=== PATIENT | male | born 1965 | race Caucasian/White ===

== ENCOUNTER 2021-02-03 17:30 | Inpatient (IN) | payer MEDICARE, MEDICAID, SELFPAY ==
[2021-02-03 17:38] VITALS: BMI 18.3
[2021-02-03 17:39] VITALS: BP 163/96; PULSE 102; RESP 20; TEMP 36.8; O2SAT 100
--- NOTE | 2021-02-03 19:05 | PC.NURSE ---
covid swab sent to lab
[2021-02-03 19:13] LABS: Coronavirus 19, PCR Not Detected (NotDetected); Influenza A, PCR Not Detected (NotDetected); Influenza B, PCR Not Detected (NotDetected)
[2021-02-03 20:00] VITALS: BP 151/88; PULSE 95; RESP 16; TEMP 37.4; O2SAT 96
--- NOTE | 2021-02-03 20:14 | HMH.HP ---
*Admission Date: 02/03/21 *Chief complaint: sob *History of present illness: this patient was accepted from [facility] ed with sob and found to have cap- pt was transferred to [facility] for eval and treatment -pt has hx of liver disease and cirrhosis and copd and tob use - pt has been ill for a few days with fever and fatigue - pt was noted to have cap and transferred to [facility] History I have reviewed the patient's past medical history: Yes Medical History: Reports:: Hyperlipidemia, Hypertension Denies:: Diabetes Mellitus Type 1, Diabetes Mellitus Type 2 *Have you ever received a pneumonia vaccine?: Yes *Have you received a flu vaccine this season?: No Other Medical History: Reports: Arthritis, Liver Disease Other Surgeries: Yes: Appendectomy - *Social History Smoking Status: Current every day smoker # Packs/Day (cigarettes): 1 Alcohol Intake: current Alcohol Intake Frequency:: 3 or more drinks per day *Occupational Status:: employed *Travel in the last 8 weeks: None Family Hx:: No significant family history Review of Systems - Review of Systems Review of systems:: pertinent systems reviewed and negative unless documented below - Constitutional Reports fever(s), Reports weakness - Eyes Denies change in vision - ENT Denies sore throat - *Cardiovascular Denies chest pain - *Respiratory Reports cough, Reports shortness of breath, Reports wheezing, Denies coughing up blood - *Gastrointestinal Denies abdominal pain - *Genitourinary Denies blood in urine - *Musculoskeletal Denies joint swelling - Integumentary/Breasts Denies rash - *Neurologic Denies localized weakness, Denies headache(s), Denies seizure-like activity - Psychiatric Denies behavioral changes Meds Home Medications Medication Instructions Recorded Confirmed Type Aspirin [Adult Aspirin Regimen] 81 mg PO DAILY 02/03/21 02/03/21 History Atorvastatin Calcium [Lipitor 40mg 40 mg PO HS 02/03/21 02/03/21 History Tab] Clopidogrel Bisulfate [Clopidogrel 75 mg PO DAILY 02/03/21 02/03/21 History 75mg Tab] Gabapentin 800 mg PO TID 02/03/21 02/04/21 History Megestrol Acetate 5 ml PO BID 02/03/21 02/04/21 History Montelukast Sodium 10 mg PO DAILY 02/03/21 02/03/21 History Omeprazole [Omeprazole 20mg Tab] 20 mg PO DAILY 02/03/21 02/03/21 History Valsartan [Valsartan 160mg 160 mg PO DAILY 02/03/21 02/03/21 History Tablets] carvediloL [Carvedilol 12.5mg Tab] 12.5 mg PO BID 02/03/21 02/04/21 History cloNIDine HCL [cloNIDine 0.1mg 0.1 mg PO BID 02/03/21 02/03/21 History Tablet] Albuterol Sulfate [Proventil-HFA 2 puffs INHALATION Q4HP PRN 02/04/21 02/04/21 History 90mcg/puff Inh] Budesonide/Formoterol Fumarate 1 puff INHALATION BID 02/04/21 02/04/21 History [Symbicort 160-4.5 Mcg Inhaler] Simethicone [Gas Relief] 80 mg PO QIDP PRN 02/04/21 02/04/21 History Allergies Allergy/AdvReac Type Severity Reaction Status Date / Time bee venom protein (honey bee) Allergy Verified 02/03/21 17:52 Exam Vital signs and Labs for Last 24 Hours: Temp Pulse Resp BP Pulse Ox 98.3 F 102 H 20 163/96 H 100 02/03/21 17:39 02/03/21 17:39 02/03/21 17:39 02/03/21 17:39 02/03/21 17:39 Laboratory Results - last 24 hr 02/03/21 18:55: SARS-CoV-2 (PCR) Not detected, Influenza A Untype (PCR) Not detected, Influenza Type B (PCR) Not detected I & O for Last 24 hours: Intake & Output 02/01/21 02/02/21 02/03/21 02/04/21 11:59 11:59 11:59 11:59 Output Total 250 / 250 Balance -250 / -250 Weight 128 lb - Constitutional no acute distress, thin - *Routine HEENT Exam Head: Present: normocephalic Eye: Present: EOMI, PERRL ENT: Present: mucous membranes dry - *Routine Neck Exam Absent: JVD - *Routine Respiratory Exam Present: decreased breath sounds, rhonchi, wheezes - *Routine Cardiovascular Exam Present: RRR, murmur, S4 - *Routine Abdominal Exam Present: soft - *Routine Re
--- NOTE | 2021-02-03 20:19 | XR_ITS ---
PROCEDURE INFORMATION: Exam: XR Chest Exam date and time: 02/03/2021 8:19 PM Age: 56 years old Clinical indication: Cough and shortness of breath; Patient HX: Cough SOB TECHNIQUE: Imaging protocol: XR of the chest. Views: 1 view. COMPARISON: No relevant prior studies available. FINDINGS: Lungs: Patchy interstitial infiltrates identified bilaterally. Many of the infiltrates have a peripheral distribution. Area of greatest involvement is at the right lung base. No evidence of pulmonary vascular congestion. Pleural spaces: Unremarkable. No pleural effusion. No pneumothorax. Heart/Mediastinum: Median sternotomy and cardiac surgery have been performed. The heart is normal size. The superior mediastinum is not widened. Bones/joints: Unremarkable. IMPRESSION: Patchy interstitial infiltrates within both lung aleman. Many of the infiltrates have a peripheral distribution. The possibility of atypical interstitial pneumonitis, including pneumonitis caused by Covid 19 is considered.
[2021-02-03 21:19] VITALS: PULSE 100
[2021-02-04] VITALS (12 sets, daily range): BP systolic 128–159; BP diastolic 70–89; PULSE 74–94; RESP 16–30; TEMP 36.6–36.9; O2SAT 89–98; BMI 18.3
[2021-02-04 00:15] LABS: Troponin I 0.02 ng/ml (0.00-0.034)
[2021-02-04 02:49] LABS: Troponin I 0.03 ng/ml (0.00-0.034)
--- NOTE | 2021-02-04 03:06 | HMH.PHAVTE ---
[facility] Pharmacy VTE Monitoring - Patient Demographics Admission date: 02/04/21 Report Date: 02/04/21 Time: 03:06 Allergies/Adverse Reactions: Patient Allergies bee venom protein (honey bee) Allergy (Verified 02/03/21 17:52) Height: 1.78 m Weight: 58.06 kg - VTE Risk Was VTE Risk Assessment Performed: Yes VTE Score: 7 VTE Risk Level: Moderate Risk Clinical Trial Participant: No - Prophylaxis VTE Prophylaxis Ordered?: Yes Types of VTE Prophylaxis: TEDS Knee High
[2021-02-04 07:37] LABS: Basophils % 0.1 % (0.1-2.0); Eosinophils % 0.4 % (0.1-12.0); Hematocrit 27.8 % (42.0-52.0); Hemoglobin 9.4 g/dL (14.1-18.0); Lymphocytes # 0.4 K/mm3 (0.7-4.5); Lymphocytes % 4.2 % (10-50); Mean Corpuscular HGB Conc 33.8 g/dL (31.8-35.4); Mean Corpuscular Volume 106.7 fl (80-94); Mean Platelet Volume 8.6 fl (7.4-10.4); Monocytes # 0.2 K/mm3 (0.1-1.0); Monocytes % 1.8 % (1.7-9.3); Neutrophils # 7.9 K/mm3 (1.8-7.8); Neutrophils % 93.6 % (37.0-80.0); Platelet Count 146 K/mm3 (142-424); Red Blood Count 2.61 M/mm3 (4.60-6.20); Red Cell Distribution Width 15.7 % (11.5-17.5); White Blood Count 8.5 K/mm3 (4.8-10.8)
[2021-02-04 07:48] LABS: MANUAL DIFFERENTIAL MANUAL DIFFERENTIAL (MANUAL DIFF)
[2021-02-04 07:59] LABS: Chloride 97 mmol/L (98-107); Sodium 126 mmol/L (136-145)
[2021-02-04 08:02] LABS: Alanine Aminotransferase 13 U/L (12-78); Albumin Level 2.5 g/dl (3.5-5.0); Albumin/Globulin Ratio 0.9 (1.1-1.8); Alkaline Phosphatase 52 U/L (38-126); Anion Gap 14.8 mEq/L (5-15); Aspartate Amino Transferase 43 U/L (17-59); Bilirubin,Total 1.5 mg/dl (0.2-1.3); Blood Urea Nitrogen 4 mg/dl (9-20); Carbon Dioxide 17 mmol/L (22.0-30.0); Creatinine Clearance Estimated 169 mL/min (50-200); Estimated Glomerular Filt Rate 223 ml/min (>60); GFR (African American) 269 ML/MIN (>60); Globulin 2.9 g/dL (1.3-3.2); Phosphorous 3.8 mg/dl (2.5-4.5); Total Protein,Serum 5.4 g/dl (6.3-8.2)
[2021-02-04 08:03] LABS: Calcium 7.6 mg/dl (8.4-10.2); Glucose 96 mg/dl (74-100)
[2021-02-04 08:20] LABS: Potassium 2.8 mmoL/L (3.5-5.1)
[2021-02-04 08:21] LABS: Magnesium 0.5 mg/dl (1.6-2.3)
[2021-02-04 09:04] LABS: Anisocytosis 1+; Hypochromasia 1+; Lymphocytes % 5 % (10-50); Macrocytosis 1+; Monocytes % 1 % (2-9); Neutrophils % 94 % (42-76); Platelet Estimate Normal; Total Cells Counted 100
--- NOTE | 2021-02-04 10:27 | HMH.PHAINT ---
Verified home medications with [facility] pharmacy
--- NOTE | 2021-02-04 11:02 | P.PN_ITS ---
Internal Medicine - PN: Subj *Date: 02/05/21 *Time: 09:35 Interval history: doing better this am - feels better - labs reviewed Exam Vital signs and Labs for Last 24 Hours: Temp Pulse Resp BP Pulse Ox 98.4 F 90 18 142/84 H 94 L 02/04/21 07:46 02/04/21 07:46 02/04/21 07:46 02/04/21 07:46 02/04/21 07:46 Laboratory Results - last 24 hr 02/03/21 18:55: SARS-CoV-2 (PCR) Not detected, Influenza A Untype (PCR) Not detected, Influenza Type B (PCR) Not detected 02/03/21 23:26: Troponin I 0.02 02/04/21 02:15: Troponin I 0.03 02/04/21 07:15: WBC 8.5, RBC 2.61 L, Hgb 9.4 L, Hct 27.8 L, MCV 106.7 H, MCH 36.0 H, MCHC 33.8, RDW 15.7, Plt Count 146, MPV 8.6, Neut % (Auto) 93.6 H, Lymph % (Auto) 4.2 L, [place] % (Auto) 1.8, Eos % (Auto) 0.4, Baso % (Auto) 0.1, Neut # (Auto) 7.9 H, Lymph # (Auto) 0.4 L, [place] # (Auto) 0.2, Eos # (Auto) 0.0, Baso # (Auto) 0.0, Total Counted 100, Neutrophils % (Manual) 94 H, Lymphocytes % (Manual) 5 L, Monocytes % (Manual) 1 L, Platelet Estimate Normal, Hypochromasia 1+, Anisocytosis 1+, Macrocytosis 1+ 02/04/21 07:15: Sodium 126 L, Potassium 2.8 L*, Chloride 97 L, Carbon Dioxide 17 L, Anion Gap 14.8, BUN 4 L, Creatinine 0.40 L, Estimated Creat Clear 169, Estimated GFR 223, Est GFR ( Amer) 269, Glucose 96, Calcium 7.6 L, Phosphorus 3.8, Magnesium 0.5 L, Total Bilirubin 1.5 H, AST 43, ALT 13, Alkaline Phosphatase 52, Total Protein 5.4 L, Albumin 2.5 L, Globulin 2.9, Albumin/Globulin Ratio 0.9 L I & O for Last 24 hours: Intake & Output 02/01/21 02/02/21 02/03/21 02/04/21 11:59 11:59 11:59 11:59 Intake Total 360 / 360 Output Total 250 / 250 Balance 110 / 110 Weight 128 lb 0.006 oz - Constitutional no acute distress - *Routine HEENT Exam Head: Present: normocephalic Eye: Present: EOMI, PERRL ENT: Present: mucous membranes dry - *Routine Neck Exam Absent: JVD - *Routine Respiratory Exam Present: rhonchi - *Routine Cardiovascular Exam Present: RRR - *Routine Abdominal Exam Present: soft - *Routine Extremities Exam Absent: cyanosis - *Routine Skin Exam Present: intact - *Routine Neurological Exam Present: alert, CN II-XII intact - Routine Psychiatric Exam Present: normal affect Assessment and Plan (1) Hyponatremia Status: Acute Category: Medical Code(s): E87.1 - Hypo-osmolality and hyponatremia (2) Hypokalemia Status: Acute Category: Medical Code(s): E87.6 - Hypokalemia (3) Hypomagnesemia Status: Acute Category: Medical Code(s): E83.42 - Hypomagnesemia (4) CAP (community acquired pneumonia) Status: Acute Qualifiers: Laterality: unspecified laterality Qualified Code(s): J18.9 - Pneumonia, unspecified organism Category: Medical Code(s): J18.9 - Pneumonia, unspecified organism (5) COPD with respiratory failure, acute Status: Acute Category: Medical Code(s): J44.9 - Chronic obstructive pulmonary disease, unspecified; J96.00 - Acute respiratory failure, unspecified whether with hypoxia or hypercapnia (6) Respiratory failure with hypoxia Status: Acute Qualifiers: Chronicity: acute on chronic Qualified Code(s): J96.21 - Acute and chronic respiratory failure with hypoxia Category: Medical Code(s): J96.91 - Respiratory failure, unspecified with hypoxia
[2021-02-05] VITALS: BP 121/76; PULSE 80; PULSE 89; RESP 18; TEMP 36.6; O2SAT 98
[2021-02-05 04:00] VITALS: BP 119/78; PULSE 70; PULSE 86; RESP 16; TEMP 36.6; O2SAT 94
[2021-02-05 04:08] VITALS: BMI 18.3
[2021-02-05 06:15] VITALS: PULSE 83; PULSE 89; O2SAT 90
[2021-02-05 07:50] VITALS: BP 131/83; PULSE 95; RESP 17; TEMP 36.8; O2SAT 91
[2021-02-05 08:33] LABS: Basophils % 0.1 % (0.1-2.0); Eosinophils # 0.1 K/mm3 (0.0-0.4); Eosinophils % 0.6 % (0.1-12.0); Hematocrit 32.4 % (42.0-52.0); Hemoglobin 10.8 g/dL (14.1-18.0); Lymphocytes # 0.6 K/mm3 (0.7-4.5); Lymphocytes % 7.2 % (10-50); Mean Corpuscular HGB Conc 33.2 g/dL (31.8-35.4); Mean Corpuscular Hemoglobin 35.8 pg (27.0-31.2); Mean Platelet Volume 7.9 fl (7.4-10.4); Monocytes # 0.2 K/mm3 (0.1-1.0); Monocytes % 2.6 % (1.7-9.3); Neutrophils # 7.7 K/mm3 (1.8-7.8); Neutrophils % 89.5 % (37.0-80.0); Platelet Count 203 K/mm3 (142-424); Red Cell Distribution Width 15.6 % (11.5-17.5); White Blood Count 8.6 K/mm3 (4.8-10.8)
[2021-02-05 08:35] LABS: MANUAL DIFFERENTIAL MANUAL DIFFERENTIAL (MANUAL DIFF)
[2021-02-05 08:39] LABS: Chloride 93 mmol/L (98-107); Potassium 4.2 mmoL/L (3.5-5.1); Sodium 122 mmol/L (136-145)
[2021-02-05 08:42] LABS: Anion Gap 16.2 mEq/L (5-15); Blood Urea Nitrogen 9 mg/dl (9-20); Carbon Dioxide 17 mmol/L (22.0-30.0); Creatinine Clearance Estimated 135 mL/min (50-200); Estimated Glomerular Filt Rate 172 ml/min (>60); GFR (African American) 208 ML/MIN (>60)
[2021-02-05 08:43] LABS: Calcium 8.1 mg/dl (8.4-10.2); Glucose 143 mg/dl (74-100)
[2021-02-05 08:53] LABS: Lymphocytes % 10 % (10-50); Monocytes % 3 % (2-9); Neutrophils % 87 % (42-76); Platelet Estimate Normal; RBC Morphology Normal; Total Cells Counted 100
--- NOTE | 2021-02-05 09:39 | HMH.DCSUM ---
General - General Admission date:: 02/03/21 Discharge date: 02/05/21 HPI HPI: this patient was accepted from [facility] ed with sob and found to have cap- pt was transferred to [facility] for eval and treatment -pt has hx of liver disease and cirrhosis and copd and tob use - pt has been ill for a few days with fever and fatigue - pt was noted to have cap and transferred to [facility] Hospital Course Hospital Course: pt has slowly improved during admit at [facility]- he has been more active but still less than baseline tolerating diet - labs have improved and he uses o2 at home with inhalers and nebulizer - usually 2 l at night - pt has improved with abx and steroids - requested with pt and his that he stay till am for more improvement and see pul and obtain echo but pt insists leaving today - has improved and will be d/c on abx and steroids and asked to close follow up as op Objective Vital signs: Temp Pulse Resp BP Pulse Ox 98.2 F 95 H 17 131/83 91 L 02/05/21 07:50 02/05/21 07:50 02/05/21 07:50 02/05/21 07:50 02/05/21 07:50 no acute distress, thin - *Routine HEENT Exam Head: Present: normocephalic Eye: Present: EOMI, PERRL ENT: Present: mucous membranes dry - *Routine Neck Exam Absent: JVD - *Routine Respiratory Exam Present: CTA bilaterally - *Routine Cardiovascular Exam Present: RRR, murmur, S4 - *Routine Abdominal Exam Present: soft - *Routine Extremities Exam Absent: calf tenderness - *Routine Skin Exam Present: intact - *Routine Neurological Exam Present: alert, CN II-XII intact - Routine Psychiatric Exam Present: normal affect Results Labs on day of discharge: Labs from last 24 hours 02/05/21 02/05/21 08:30 08:30 WBC 8.6 RBC 3.00 L Hgb 10.8 L Hct 32.4 L MCV 108.0 H MCH 35.8 H MCHC 33.2 RDW 15.6 Plt Count 203 D MPV 7.9 Neut % (Auto) 89.5 H Lymph % (Auto) 7.2 L [place] % (Auto) 2.6 Eos % (Auto) 0.6 Baso % (Auto) 0.1 Neut # (Auto) 7.7 Lymph # (Auto) 0.6 L [place] # (Auto) 0.2 Eos # (Auto) 0.1 Baso # (Auto) 0.0 Total Counted 100 Neutrophils % (Manual) 87 H Lymphocytes % (Manual) 10 Monocytes % (Manual) 3 Platelet Estimate Normal RBC Morphology Normal Sodium 122 L Potassium 4.2 D Chloride 93 L Carbon Dioxide 17 L Anion Gap 16.2 H BUN 9 D Creatinine 0.50 L D Estimated Creat Clear 135 Estimated GFR 172 Est GFR ( Amer) 208 D Glucose 143 H Calcium 8.1 L Preliminary micro results at discharge 02/04/21 13:15 Sputum Culture - Preliminary Sputum - Expectorated Sputum - Imaging and Cardiology Chest x-ray Status: final report DS: Diagnosis - Discharge Diagnosis (1) Hyponatremia Status: Acute (2) Hypokalemia Status: Acute (3) Hypomagnesemia Status: Acute (4) CAP (community acquired pneumonia) Status: Acute (5) COPD with respiratory failure, acute Status: Acute (6) Respiratory failure with hypoxia Status: Acute (7) Low body mass index (BMI) Status: Acute Discharge Plan - Patient Discharge Instructions ACTIVITY: Continue current activity DIET: continue same diet Patient Instructions: DI for Shortness of Breath, How to Manage Shortness of Breath - Follow up Plan Follow up with: Rivka Sexton MD [Physician] - Tyrell Ball MD [Primary Care Provider] - Disposition: Home, Self-Care Condition at discharge:: Improved Home Medications: Home Medications Medication Instructions Recorded Confirmed Type Aspirin [Adult Aspirin Regimen] 81 mg PO DAILY 02/03/21 02/03/21 History Atorvastatin Calcium [Lipitor 40mg 40 mg PO HS 02/03/21 02/03/21 History Tab] Clopidogrel Bisulfate [Clopidogrel 75 mg PO DAILY 02/03/21 02/03/21 History 75mg Tab] Gabapentin 800 mg PO TID 02/03/21 02/04/21 History Megestrol Acetate 5 ml PO BID 02/03/21 02/04/21 History Montelukast Sodium 10 mg PO DAILY
--- NOTE | 2021-02-05 10:21 | PC.NURSE ---
pt has been discharged from the unit via wheelchair with his . He has home o2 and a portable tank was sent home with pt. IV discontinued as well as tele. Voiced understanding of all discahrge education and follow up appt.
== END 2021-02-05 10:20 | disposition home or self-care (01) | DRG 193 ==
PROVIDERS: Admitting Provider Emergency Medicine; PCP Emergency Medicine; Visit Provider Emergency Medicine
DX: J18.9 Pneumonia, unspecified organism (principal); J96.21 Acute and chronic respiratory failure with hypoxia; J44.0 Chronic obstructive pulmonary disease with (acute) lower respiratory infection; E87.1 Hypo-osmolality and hyponatremia; F17.210 Nicotine dependence, cigarettes, uncomplicated; Z20.822 Contact with and (suspected) exposure to COVID-19; K74.60 Unspecified cirrhosis of liver; I25.10 Atherosclerotic heart disease of native coronary artery without angina pectoris; I10 Essential (primary) hypertension; E87.6 Hypokalemia; E83.42 Hypomagnesemia; D64.9 Anemia, unspecified
CPT/HCPCS: 36415; 71045; 80048; 80053; 83735; 84100; 84484; 85007; 85025; 87070; 87077; 87186; 87205; 94640; C9803; J0456; U0003; U0005